=== PATIENT | male | born 1980 | race Caucasian/White ===

== ENCOUNTER 2025-04-09 15:01 | Emergency (ER) | payer OTHER, BC ==
[~2025-04-09] VITALS: Ht 167.6 cm; Wt 81.1 kg
[2025-04-09] MEDS ORDERED: PRAZ2CAP PO (15:42)
[2025-04-09] MEDS ORDERED: GABA-1635 PO (15:42)
[2025-04-09] MEDS ORDERED: BACL10TA2 PO (15:42)
[2025-04-09] MEDS ORDERED: SERT-141 PO (15:42)
[2025-04-09] MEDS ORDERED: pravastatin (15:42)
[2025-04-09 17:41] VITALS: BP 126/60; TEMP 97.6; O2SAT 97
== END 2025-04-09 17:52 | disposition home or self-care (01) ==
LOC: M ED 15:01
DX: S63.502A Unspecified sprain of left wrist, initial encounter (principal); Y92.9 Unspecified place or not applicable; Y93.9 Activity, unspecified; Y99.0 Civilian activity done for income or pay; F17.210 Nicotine dependence, cigarettes, uncomplicated; Z79.2 Long term (current) use of antibiotics; Z79.899 Other long term (current) drug therapy